=== PATIENT | male | born 1950 | race Caucasian/White ===

== ENCOUNTER 2023-07-23 14:36 | Inpatient (IN) | payer MEDICARE, SELFPAY ==
[2023-07-23] VITALS (69 sets, daily range): BP systolic 87–153; BP diastolic 64–89; PULSE 45–105; RESP 17–39; TEMP 34.1; O2SAT 82–100; BMI 17.3
--- NOTE | 2023-07-23 14:38 | CTR_ITS ---
PROCEDURE INFORMATION: Exam: CT Head Without Contrast Exam date and time: 07/23/2023 3:37 PM Age: 72 years old Clinical indication: Altered mental status/memory loss and coma or unconsciousness; Confusion or disorientation; Additional info: Encephalopathy, altered mental status TECHNIQUE: Imaging protocol: Computed tomography of the head without contrast. Radiation optimization: All CT scans at this facility use at least one of these dose optimization techniques: automated exposure control; mA and/or kV adjustment per patient size (includes targeted exams where dose is matched to clinical indication); or iterative reconstruction. COMPARISON: No relevant prior studies available. RADIATION DOSE METRICS: Total DLP (mGy-cm): 1077.5 FINDINGS: Brain: Normal. No hemorrhage. Unremarkable white matter. No mass effect. Cerebral ventricles: No ventriculomegaly. Paranasal sinuses: Visualized sinuses are unremarkable. No fluid levels. Mastoid air cells: Visualized mastoid air cells are well aerated. Bones: Unremarkable. No acute fracture. Soft tissues: Unremarkable. CT/CT head wo con* [id number] IMPRESSION: No acute intracranial abnormality.
--- NOTE | 2023-07-23 14:38 | XRR_ITS ---
PROCEDURE INFORMATION: Exam: XR Chest Exam date and time: 07/23/2023 2:53 PM Age: 72 years old Clinical indication: Pain; Angina pectoris; Patient HX: PT unresponsive; Additional info: Chest pain TECHNIQUE: Imaging protocol: Radiologic exam of the chest. Views: 1 view. COMPARISON: No relevant prior studies available. FINDINGS: Tubes, catheters and devices: Endotracheal tube terminates 7 cm above the raphael. Lungs: Emphysematous COPD. Pleural spaces: Unremarkable. No pleural effusion. No pneumothorax. Heart/Mediastinum: Unremarkable. No cardiomegaly. Bones/joints: Unremarkable. Soft tissues: Hazy density over the left apex is probably superimposed soft tissue, a minimal infiltrate might be present. XR/XR chest 1V portable [id number] IMPRESSION: Intubation.
--- NOTE | 2023-07-23 14:39 | ECG_ITS ---
[facility] Test Date: 2023-07-23 Pat Name: Johnathon Garcia Department: Room: Gender: Male Envelope Folder: : 1950 Requested By: Liss Michael Order Number: [id number] Brisa MD: Joe Guillermo M.D. Measurements Intervals [place] Rate: 66 P: 0 OR: 0 QRS: -87 QRSD: 146 T: 70 QT: 448 QTc: 473 Interpretive Statements Possible sinus rhythm with a first-degree AV block occasional premature ventricular contractions. LEFT AXIS DEVIATION [QRS AXIS < -30] RIGHT BUNDLE BRANCH BLOCK [120+ ms QRS DURATION, UPRIGHT V1, 40+ ms S IN I/aVL/V4/V5/V6] MARKED ST DEPRESSION, CONSIDER SUBENDOCARDIAL INJURY [0.2+ mV ST DEPRESSION] ACUTE MT No previous ECG available for comparison Electronically Signed On 07-23-2023 19:11:34 CDT by Joe Guillermo M.D. [id number]
[2023-07-23 14:50] LABS: Basophils % 0.2 %; Eosinophils % 0.1 %; Hematocrit 34.7 % (37-53); Lymphocytes % 34.9 %; Mean Corpuscular HGB Conc 34.3 g/dL (30-55); Mean Corpuscular Hemoglobin 39.8 pg (27-33); Mean Corpuscular Volume 116.1 fl (82-101); Mean Platelet Volume 10.7 fL (7.4-10.4); Monocytes # 0.1 10^3/uL (0.2-0.9); Monocytes % 1.3 %; Neutrophils # 5.09 10^3/uL (1.8-7.7); Neutrophils % 59.2 %; Nucleated Red Blood Cells % 0.2 %; Platelet Count 48 10^3/cmm (157-399); Red Blood Count 2.99 10^6/uL (3.85-5.65); Red Cell Distribution Width 13.2 % (12.1-15.1)
--- NOTE | 2023-07-23 14:53 | ED_ITS ---
HPI - General Adult 2 General: Chief complaint: Cardiac Arrest/CPR Stated complaint: unresponsive Time Seen by Provider: 07/23/23 14:37 Course 2 Vital Signs: Vital signs: Vital Signs Pulse Rate 72 07/23/23 14:41 Respiratory Rate 19 H 07/23/23 14:41 Blood Pressure 117/74 07/23/23 14:41 Pulse Oximetry 100 07/23/23 14:41 Oxygen Delivery Me thod Mechanical Ventil ation 07/23/23 14:41 MDM - General Adult Lab Data 07/23/23 14:42 07/23/23 14:42 Laboratory Results WBC 8.60 10^3/uL (3.29-11.43) 07/23/23 14:42 RBC 2.99 10^6/uL (3.85-5.65) L 07/23/23 14:42 Hgb 11.90 g/dL (11.27-16.99) 07/23/23 14:42 Hct 34.7 % (37-53) L 07/23/23 14:42 MCV 116.1 fl (82-101) H 07/23/23 14:42 MCH 39.8 pg (27-33) H 07/23/23 14:42 MCHC 34.3 g/dL (30-55) 07/23/23 14:42 RDW 13.2 % (12.1-15.1) 07/23/23 14:42 Plt Count 48 10^3/cmm (157-399) L 07/23/23 14:42 MPV 10.7 fL (7.4-10.4) H 07/23/23 14:42 Neut % (Auto) 59.2 % 07/23/23 14:42 Lymph % (Auto) 34.9 % 07/23/23 14:42 [place] % (Auto) 1.3 % 07/23/23 14:42 Eos % (Auto) 0.1 % 07/23/23 14:42 Baso % (Auto) 0.2 % 07/23/23 14:42 Neut # (Auto) 5.09 10^3/uL (1.8-7.7) 07/23/23 14:42 Lymph # (Auto) 3.0 10^3/uL (0.8-4.8) 07/23/23 14:42 [place] # (Auto) 0.1 10^3/uL (0.2-0.9) L 07/23/23 14:42 Eos # (Auto) 0.0 10^3/uL (0.0-0.8) 07/23/23 14:42 Baso # (Auto) 0.0 10^3/uL (0.0-0.1) 07/23/23 14:42 Nucleated RBC % (auto) 0.2 % 07/23/23 14:42 Nucleated RBCs # 0.0 /100WBC 07/23/23 14:42 Discharge Plan Discharge Condition: Stable Coding Level of Care Code ED Preschool Assistant for George Reynoso
--- NOTE | 2023-07-23 14:55 | ED_ITS ---
HPI - General Adult 2 General: Chief complaint: Cardiac Arrest/CPR Stated complaint: unresponsive Time Seen by Provider: 07/23/23 14:37 History of Present Illness: 72-year-old man who presents to the [facility] room after being found down at home. Apparently he gone to lie down for a nap and when his went to check on him he was unresponsive. EMS provide within 5 to 10 minutes of the call. CPR was performed at the residence for a total of an hour. ROSC achieved 3 times. They would wait 10 minutes afterwards per protocol. Finally they talked with nikunj cervantes at the hospital and were told to go ahead and transport as he cannot going from asystole to having a rhythm to ROSC. They started transport with CPR and regained pulse and he had a pulse on arrival here. At this point I have no other history. I do not know his past medical history. Review of Systems 2 General: Reports: ROS unobtainable due to medical condition Physical Exam 2 Narrative: EXAM NARRATIVE: General: unresponsive, intubated. Skin: Warm, dry Head: Normocephalic, atraumatic. Neck: Supple, trachea midline. Eye: pupils pinpoint, sluggish, equal Ears, nose, mouth and throat: ETT in place. Cardiovascular: Regular rate and rhythm, Normal peripheral perfusion. Respiratory: coarse, mechanically ventilated, breath sounds are equal, Symmetrical chest wall expansion. Gastrointestinal: Soft, Non distended, Normal bowel sounds. Musculoskeletal: no deformity. Neurological: unable to assess. Psychiatric: unable to assess Course 2 Vital Signs: Vital signs: Vital Signs Pulse Rate 72 07/23/23 16:20 Respiratory Rate 17 07/23/23 16:20 Blood Pressure 121/79 07/23/23 16:20 Pulse Oximetry 100 07/23/23 15:50 Oxygen Delivery Me thod Mechanical Ventil ation 07/23/23 14:41 Fraction of Inspir ed Oxygen 40 07/23/23 15:53 MDM - General Adult Medical Decision Making Medical decision making: Differential diagnosis including but not limited to and based on the above HPI, review of systems and physical exam: In this postcode patient would have concern for intracranial hemorrhage or stroke. Acute coronary syndrome. Sepsis. Also pulmonary embolism would be in my differential. Once lab work is back and there was no other determination of what might be causing this I have ordered a CTA. EKG serially. Troponin serially. Orders placed to evaluate differential diagnosis based on the above differential, HPI and physical exam Lab Review: Laboratory results were reviewed and interpreted by myself the emergency room physician. Patient has a white count of 8. Hemoglobin is 11.9. He has thrombocytopenia with platelets of 48. His blood glucose is slightly elevated at 276. His BUN and creatinine are slightly elevated at 13 and 1.3. Bicarb is low at 16. This was confirmed as a metabolic acidosis on ABG. Lactate is 12. I reviewed the patient's medical record. CT head: No acute intracranial process. no intracranial hemorrhage, no evidence of infarct. no evidence of acute fracture.This was reviewed and interpreted by myself the ER physician. Chest x-ray: ET tube in place. Otherwise no acute process. No infiltrate. No pneumothorax. No cardiomegaly. This was reviewed and interpreted by myself the ER physician. EKG: Time 1448. Rate 66. A-fib or sinus with sinus dysrhythmia. Diffuse ST depression, This was reviewed and interpreted by myself the ER physician at 1450. I discussed the findings of this EKG with the public transit specialist. Diffuse ST depression that is likely secondary to metabolic changes. Repeat EKG: Regular rhythm at this time. Uncertain whether this is sinus. New right bundle branch block. Diffuse ST depression has improved somewhat., No ST- T changes, no ectopy, right bundle branch block, This was reviewed and interpreted by myself the ER physician Reexamination: Patient is now critical but relatively stable on the vent and pressors. He has been biting at the vent tube and shows no focal motor deficits. CT of his head was negative for bleed. Oxygen saturations are good on the ventilator and supplemental oxygen has been decreased. Alternative history from : I discussed the patient with his . She says that he is normally very healthy and only takes an aspirin a day. She confirms that he had to lay down for a nap and when she found him in 15 or 20 minutes he was unresponsive and barely breathing. Consultation: I spoke with Dr. Burciaga with cardiology and he reviewed the EKG. EKG changes likely due to metabolic acidosis. Consultation: I spoke with Dr. Calderon who is admitting the patient to the ICU. Assessment and plan: Cardiac arrest Cardiogenic shock Possible septic shock Metabolic acidosis Lactic acidosis Elevated troponin Abnormal EKG Coagulopathy ?I am adding a CTA with PE protocol prior to admission to the ICU. -Patient on Levophed that was started upon presentation. Have decreased from 20 down to about 18. -Started cessation with Versed. Now adding fentanyl drip as well. -PICC line was ordered and being placed in the emergency room. ?Initial troponin is elevated. Unclear etiology of the patient's cardiac arrest. Whether this be an acute coronary syndrome versus PE. -Treating for presumed sepsis. -No clear source of sepsis but given patient's persistent hypotension he has received 2 L of fluid and broad-spectrum antibiotics. -2 L normal saline bolus. Fluid volumes based on ideal body weight. -Broad-spectrum antibiotics were administered. -Sepsis quality measures. -Lactic acid with a reflex was ordered. -Blood cultures were ordered. -Patient was intubated on presentation. Oxygen has been turned down. Sodium bicarbonate was given for extreme metabolic acidosis ?Patient's INR is elevated and platelets are low. Will defer any anticoagulants to the public transit specialist. -I discussed the patient with the hospitalist on-call who is admitting the patient. - Discussed findings and plan with family. Answered any questions. - All laboratory values were reviewed and interpreted personally by myself, the ER physician - All imaging was reviewed and interpreted personally by myself, the ER physician. - Evaluation and treatment of this problem were appropriate in the emergency setting Critical care: -I spent a total of >75 minutes of critical care time managing the patient, independent of any other practitioner. -The time involved in the performance of separately reportable procedures was not counted towards critical care time. Lab Data 07/23/23 14:42 07/23/23 14:42 Radiology Impressions Chest X-Ray 07/23/23 14:38 IMPRESSION: Intubation. Head CT 07/23/23 14:38 IMPRESSION: No acute intracranial abnormality. Laboratory Results WBC 8.60 10^3/uL (3.29-11.43) 07/23/23 14:42 RBC 2.99 10^6/uL (3.85-5.65) L 07/23/23 14:42 Hgb 11.90 g/dL (11.27-16.99) 07/23/23 14:42 Hct 34.7 % (37-53) L 07/23/23 14:42 MCV 116.1 fl (82-101) H 07/23/23 14:42 MCH 39.8 pg (27-33) H 07/23/23 14:42 MCHC 34.3 g/dL (30-55) 07/23/23 14:42 RDW 13.2 % (12.1-15.1) 07/23/23 14:42 Plt Count 48 10^3/cmm (157-399) L 07/23/23 14:42 MPV 10.7 fL (7.4-10.4) H 07/23/23 14:42 Neut % (Auto) 59.2 % 07/23/23 14:42 Lymph % (Auto) 34.9 % 07/23/23 14:42 [place] % (Auto) 1.3 % 07/23/23 14:42 Eos % (Auto) 0.1 % 07/23/23 14:42 Baso % (Auto) 0.2 % 07/23/23 14:42 Neut # (Auto) 5.09 10^3/uL (1.8-7.7) 07/23/23 14:42 Lymph # (Auto) 3.0 10^3/uL (0.8-4.8) 07/23/23 14:42 [place] # (Auto) 0.1 10^3/uL (0.2-0.9) L 07/23/23 14:42 Eos # (Auto) 0.0 10^3/uL (0.0-0.8) 07/23/23 14:42 Baso # (Auto) 0.0 10^3/uL (0.0-0.1) 07/23/23 14:42 Nucleated RBC % (auto) 0.2 % 07/23/23 14: Nucleated RBCs # 0.0 /100WBC 07/23/23 14:42 PT 38.10 SECONDS (12.1-14.9) H 07/23/23 14:42 INR 3.70 (0.8-1.2) H 07/23/23 14:42 APTT 153.8 SECONDS (23.9-36.7) H* 07/23/23 14:42 Specimen Type Arterial 07/23/23 15:13 Sample Site Radial, right 07/23/23 15:13 ABG pH 7.10 (7.35-7.45) L* 07/23/23 15:13 ABG pCO2 36.8 mmHg (35-45) 07/23/23 15:13 ABG pO2 483.0 mmHg (80.0-100.0) H 07/23/23 15:13 ABG PO2/FiO2 Ratio 0 07/23/23 15:13 ABG HCO3 11.4 mmol/L (22-26) L 07/23/23 15:13 ABG O2 Saturation > 100.0 07/23/23 15:13 ABG Base Excess -17.3 mmol/L (-2.0-2.0) L 07/23/23 15:13 Byron Test Pos 07/23/23 15:13 A-a O2 Gradient 22.4 mmHg (5-10) H 07/23/23 15:13 Hematocrit 32.7 % (42-52) L 07/23/23 15:13 Hgb O2 Saturation 99.0 % (95-100) 07/23/23 15:13 Carboxyhemoglobin 0.6 %THgb (0.4-20.1) 07/23/23 15:13 Methemoglobin 0.5 % (0.4-1.5) 07/23/23 15:13 Total Hemoglobin 10.7 g/dL (14-18) L 07/23/23 15:13 Sodium 142.0 mmol/L (131-143) 07/23/23 15:13 Potassium 4.4 mmol/L (3.5-5.0) 07/23/23 15:13 Glucose 220.0 mg/dL (70-115) H 07/23/23 15:13 Ionized Calcium 1.0 mmol/L (1.1-1.4) L 07/23/23 15:13 O2 Delivery Device Vent 07/23/23 15:13 FiO2 100.0 % 07/23/23 15:13 Tidal Volume 0.45 07/23/23 15:13 PEEP 5.0 cmH20 07/23/23 15:13 Die Storage Clerk ID glc 07/23/23 15:13 Sodium 144 mmol/L (136-145) 07/23/23 14:42 Potassium 4.3 mmol/L (3.5-5.1) 07/23/23 14:42 Chloride 107 mmol/L (98-107) 07/23/23 14:42 Carbon Dioxide 16 mmol/L (22-29) L 07/23/23 14:42 Anion Gap 25.3 (5-19) H 07/23/23 14:42 BUN 13 mg/dL (8-23) 07/23/23 14:42 Creatinine 1.3 mg/dL (0.7-1.2) H 07/23/23 14:42 GFR Calculation Not Reportable 07/23/23 14:42 Glucose 276 mg/dL (65-115) H 07/23/23 14:42 Calculated Osmolality 308 mOsm/kg (285-295) H 07/23/23 14:42 Lactic Acid 11.2 mmol/L (0.5-2.2) H* 07/23/23 14:42 Calcium 7.9 mg/dL (8.5-10.5) L 07/23/23 14:42 Total Bilirubin 0.5 mg/dL (0.15-1.2) 07/23/23 14:42 AST 410 U/L (0-40) H 07/23/23 14:42 ALT 217 U/L (0-41) H 07/23/23 14:42 Alkaline Phosphatase 108 U/L (40-130) 07/23/23 14:42 Troponin T Baseline 281 ng/L (0-15) H* 07/23/23 14:42 NT-Pro-B Natriuret Pep 59745 pg/mL (0-125) H 07/23/23 14:42 Total Protein 4.5 g/dL (6.6-8.7) L 07/23/23 14:42 Albumin 3.0 g/dL (3.5-5.2) L 07/23/23 14:42 Globulin 1.5 g/dL (1.3-4.6) 07/23/23 14:42 Serum Ketones Negative (Negative) 07/23/23 14:42 All radiology interpretation(s) finalized by discharge Discharge Plan Discharge Condition: Stable Coding Level of Care Code ED Wool Shearer for George Reynoso
[2023-07-23] MEDS: midazolam hcl 100 MG/100 ML BAG IV (14:57)
[2023-07-23] MEDS: fentaNYL 1,000 MCG/100 ML BAG 2.5 MCG IV (14:58)
[2023-07-23] MEDS: sodium chloride 0.9% 1,000 ML 999 ML IV ×4 (15:00→22:39)
[2023-07-23] MEDS: norepinephrine 4 MG/250 ML BAG 75 MG IV (15:02)
[2023-07-23 15:04] LABS: Ketone (Acetest) Serum Negative (Negative)
[2023-07-23] MEDS: sodium bicarbonate 8.4% 1 mEq/mL 50mL Syr 50 MEQ IVP (15:18)
[2023-07-23 15:19] LABS: Troponin(5th) Baseline 281 ng/L (0-15)
[2023-07-23 15:20] LABS: Lactic Sepsis W/Reflex 11.2 mmol/L (0.5-2.2)
[2023-07-23 15:25] LABS: ABG PCO2 36.8 mmHg (35-45); Alveolar-Arterial Oxygen Gradi 22.4 mmHg (5-10); Arterial Blood Gas Hematocrit 32.7 % (42-52); Base Excess ABG -17.3 mmol/L (-2.0-2.0); Blood Gas Allen Test Pos; Blood Gas Operator Identificat glc; Blood Gas Sample Site Radial, right; Blood Gas Sample Type Arterial; Carboxyhemoglobin 0.6 %THgb (0.4-20.1); HCO3 ABG 11.4 mmol/L (22-26); Methemoglobin 0.5 % (0.4-1.5); Oxygen Device VENT; Oxygen Saturation ABG > 100.0; PO2 FiO2 Ratio Arterial Blood 0; Potassium Level - ABG 4.4 mmol/L (3.5-5.0); Total Hemoglobin 10.7 g/dL (14-18)
[2023-07-23 15:26] LABS: Blood Gas Tidal Volume 0.45
[2023-07-23 15:28] LABS: Alanine Aminotransferase 217 U/L (0-41); Alkaline Phosphatase 108 U/L (40-130); Blood Urea Nitrogen 13 mg/dL (8-23); Calcium 7.9 mg/dL (8.5-10.5); Carbon Dioxide 16 mmol/L (22-29); Chloride 107 mmol/L (98-107); Globulin 1.5 g/dL (1.3-4.6); Glucose 276 mg/dL (65-115); NT Pro B Type Natriuretic Pept 10706 pg/mL (0-125); Osmolality Calculated 308 mOsm/kg (285-295); Sodium 144 mmol/L (136-145); Total Bilirubin 0.5 mg/dL (0.15-1.2); Total Protein 4.5 g/dL (6.6-8.7)
[2023-07-23 15:37] LABS: Anion Gap 25.3 (5-19); Aspartate Amino Transferase 410 U/L (0-40); Potassium 4.3 mmol/L (3.5-5.1)
[2023-07-23 15:48] LABS: Partial Thromboplastin Time 153.8 SECONDS (23.9-36.7)
--- NOTE | 2023-07-23 16:21 | CTR_ITS ---
PROCEDURE INFORMATION: Exam: CTA Chest With Contrast Exam date and time: 07/23/2023 5:24 PM Age: 72 years old Clinical indication: Bloating; Dyspnea and hyperventilation; Additional info: Hypoxemia, tachycardia TECHNIQUE: Imaging protocol: Computed tomographic angiography of the chest with contrast. Exam focused on the arteries. 3D rendering (Not supervised by radiologist): MIP and/or 3D reconstructed images were created by the technologist. Radiation optimization: All CT scans at this facility use at least one of these dose optimization techniques: automated exposure control; mA and/or kV adjustment per patient size (includes targeted exams where dose is matched to clinical indication); or iterative reconstruction. Contrast material: OMNI 350; Contrast volume: 100 ml; Contrast route: INTRAVENOUS (IV); COMPARISON: CR XR chest 1V portable [id number] 07/23/2023 2:53 PM RADIATION DOSE METRICS: Total DLP (mGy-cm): 949.45 FINDINGS: Tubes, catheters and devices: Intubation with tip in the mid thoracic trachea. Pulmonary arteries: Small filling defect in a subsegmental pulmonary artery branch in the medial segment of the right middle lobe. The other pulmonary arteries are clear. Aorta: Unremarkable. No aortic aneurysm. No aortic dissection. Lungs: Right upper lobe calcified granuloma. 3 mm right lower lobe nodule (series 7, image 404). Dependent atelectasis in the lower lobes. Patchy ground-glass and airspace opacities with interlobular septal thickening in the superior left upper lobe. Pleural spaces: Unremarkable. No pneumothorax. No pleural effusion. Heart: Anterior and right pericardial fluid. Heart size normal sign mitral calcifications. The RV/LV ratio is 0.6. Lymph nodes: Unremarkable. No enlarged lymph nodes. Bones/joints: Scoliosis and degenerative changes of the spine. No fracture. Soft tissues: Unremarkable. risk factors), consider optional CT Chest at 12 months. (Reference: Katrin) References: Hahoirene H, et al. Guidelines for Management of Incidental Pulmonary Nodules Detected on CT Images: From the Fleischner Society 2017. Radiology. 2017;284(1):228-243. PROCEDURE INFORMATION: Exam: CT Abdomen And Pelvis With Contrast Exam date and time: 07/23/2023 5:24 PM Age: 72 years old Clinical indication: Bloating; Dyspnea and hyperventilation; Additional info: Hypoxemia, tachycardia TECHNIQUE: Imaging protocol: Computed tomography of the abdomen and pelvis with contrast. Radiation optimization: All CT scans at this facility use at least one of these dose optimization techniques: automated exposure control; mA and/or kV adjustment per patient size (includes targeted exams where dose is matched to clinical indication); or iterative reconstruction. Contrast material: OMNI 350; Contrast volume: 100 ml; Contrast route: INTRAVENOUS (IV); COMPARISON: CR XR chest 1V portable [id number] 07/23/2023 2:53 PM RADIATION DOSE METRICS: Total DLP (mGy-cm): 949.45 FINDINGS: Liver: Diffuse fatty infiltration with focal sparing adjacent to the gallbladder. No mass. Gallbladder and bile ducts: Mild calcifications in the gallbladder wall. No visible stones. The bile ducts are normal. Pancreas: Normal. No ductal dilation. Spleen: Calcified granulomas in the spleen. Adrenal glands: Normal. No mass. Kidneys and ureters: Renal cortical thinning. Bilateral renal cysts, Hounsfield units 20 or less. No follow-up imaging recommended. No calculus or hydronephrosis. Stomach and bowel: Fluid and stool scattered throughout the colon to the rectum. No wall thickening. Fluid and gas distended stomach with fluid level. The small bowel is normal. No wall thickening or obstruction. Appendix: The appendix is not visualized. No secondary signs of appendicitis. Intraperitoneal space: Mild ascites and pericholecystic fluid. No pneumoperitoneum. Vasculature: Scattered calcified arterial plaque. 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 Lymph nodes: Unremarkable. No enlarged lymph nodes. Urinary bladder: Clarke catheter a decompressed urinary bladder. Reproductive: Unremarkable as visualized. Bones/joints: Lumbar scoliosis and degenerative changes. No acute fracture. Soft tissues: Unremarkable. CT/CT angio chest w abd pel w con IMPRESSION: 1. Findings suspicious for a small pulmonary embolus in the right middle lobe. 2. Left upper lobe pneumonia. 3. Pericardial fluid. 4. 3 mm right pulmonary nodule.For patients at low risk (minimal or absent history of smoking and of other known risk factors), no routine follow-up is indicated. For patients at high risk (history of smoking or of other known IMPRESSION: 1. Mild ascites and pericholecystic fluid. 2. Fluid and gas distended stomach. 3. Stool and fluid volume in the colon and rectum could indicate constipation and possible diarrhea. 4. 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 COMMENTS: Consistent with the [employer]'s Incidental Findings Committee white paper (J Am Ze Radiol 2018): Any incidental renal lesion less than 1 cm or classified as too small to characterize, or any incidental cystic renal lesion characterized as simple-appearing, is likely benign. No follow-up imaging is recommended for these lesions per consensus recommendations based on imaging criteria.
[2023-07-23 16:34] LABS: Reflex Lactate Order REFLEX LACTIC ORDERD
--- NOTE | 2023-07-23 16:39 | ECG_ITS ---
[facility] Test Date: 2023-07-23 Pat Name: Johnathon Garcia Department: Room: Gender: Male Labeling Associate: : 1950 Requested By: Liss Michael Order Number: [id number] Ledezma MD: Joe Guillermo M.D. Measurements Intervals [place] Rate: 74 P: 0 [place]: 0 QRS: -87 QRSD: 149 T: 78 QT: 463 QTc: 515 Interpretive Statements A-V dissociation with possible junctional tachycardia RIGHT BUNDLE BRANCH BLOCK [120+ ms QRS DURATION, UPRIGHT V1, 40+ ms S IN I/aVL/V4/V5/V6] INFERIOR MYOCARDIAL INFARCTION , OF INDETERMINATE AGE [40+ ms Q WAVE AND/OR ST/T ABNORMALITY IN II/aVF] Compared to ECG 07/23/2023 14:48:23 Myocardial infarct finding now present Atrial fibrillation no longer present Ventricular premature complex(es) no longer present Aberrant conduction of supraventricular beat(s) no longer present Left-axis deviation no longer present ST (T wave) deviation no longer present Electronically Signed On 07-23-2023 19:22:03 CDT by Joe Guillermo M.D. [email or web address]
[2023-07-23 17:24] LABS: Troponin 5 2HR 1377 ng/L (0-15); Troponin 5 2HR Delta 1096 ABS# (0-10)
[2023-07-23] MEDS: iohexol 350 mg/mL 500 mL Btl (per mL) IV (17:27)
--- NOTE | 2023-07-23 17:50 | XRR_ITS ---
PROCEDURE INFORMATION: Exam: XR Chest Exam date and time: 07/23/2023 6:30 PM Age: 72 years old Clinical indication: Device placement; Picc; Additional info: Post picc insertion, louis placing in icu 11. Should be ready at 1830 TECHNIQUE: Imaging protocol: Radiologic exam of the chest. Views: 1 view. COMPARISON: CT angio chest w abd pel w con 07/23/2023 5:24 PM FINDINGS: Tubes, catheters and devices: Intubation with tip 10.0 cm above the raphael. Right PICC line with tip in the mid SVC. Lungs: Calcified granuloma in the right upper lung. Mild airspace opacity in the superior left upper lobe. Pleural spaces: Unremarkable. No pleural effusion. No pneumothorax. Heart/Mediastinum: Unremarkable. No cardiomegaly. Bones/joints: Unremarkable. XR/XR chest 1V portable [id number] IMPRESSION: 1. Left upper lobe pneumonia.
[2023-07-23 17:58] LABS: Lactic Acid level (Lactate) 10.2 mmol/L (0.5-2.2)
--- NOTE | 2023-07-23 17:58 | P.HP_ITS ---
Providers/Chief Complaint 2 Admitting Physician: Zay Moore MD Chief Complaint: unresponsive History of Present Illness Johnathon Garcia is a 72 year old male with past medical history of diabetes, he has not seen a physician in many years, who presents to [facility] due to cardiac arrest. Currently patient is intubated, sedated, on 18 of Levophed, 40% FiO2, does not follow commands, patient's is at bedside. According to patient's for the last few months patient's condition has been deteriorating, has been more weak fatigue he has been losing weight, more bedbound, less mobile, she tells me that he is an alcoholic, his last drink of alcohol was last night before he went to bed, he does frequently stumble, she tells me that he has been having poor appetite, weight loss, fatigue, malaise, complaining of chest pain intermittently complaining of shortness of breath, but has not seen a physician for these complaints. Apparently this morning, him and his went out for a picnic, they did not go so far, and they came back around noon. Patient's stepped out for about 15 to 20 minutes, Johnathon went to take a nap, when she came back she found Johnathon, unresponsive, agonal breathing, she could not feel a pulse so she called her son who told her to call an ambulance, when EMS arrived about 5 to 10 minutes after the call, CPR was performed at the residence for a total of about an hour, ROSC was achieved 3 times, rhythm was asystole, rhythm after ROSC was unclear during my examination, pupils are slowly reactive to light, he is biting on the ET tube, does not follow commands, mottled up to the level of the abdomen, on Levophed at 18, 40% FiO2, equal breath sounds bilaterally, rhythm on the monitor looks sinus rhythm, his lactic acid is 10.2, initial troponin was 281, now troponin 1377 with a delta of 1096,st depression in anterior leads, is at bedside I had a detailed discussion with patient about his goals of care, patient's does not want patient to be resuscitated if he were to go into cardiac arrest, if his condition starts to further deteriorate, and the likelihood of him having a meaningful recovery is unlikely she will at all interventions to be stopped, above all she does not want him to suffer, if he starts to suffer if his condition starts to deteriorate, she wants us to emphasize his comfort, and she is agreeable to proceed with comfort care, rest to ease his pain and ease his suffering, for now she wants medical interventions to continue, but again if his condition deteriorates or if the likelihood of him having a meaningful recovery is unlikely she wants medical interventions to be stopped and for us to proceed with comfort care I did discussion with patient's that his overall prognosis is poor, given his prolonged CPR, his prolonged downtime, and based upon his blood work, and his his clinical findings, I am worried about poor neurologic recovery given his downtime, his prolonged CPR, evidence of endorgan failure, currently his status is critical, prognosis is poor Review of Systems 2 General: Reports: ROS unobtainable due to mental status PFSH Acute 2 PFSH: Surgical History (Updated 07/23/23 @ 18:22 by Zay Moore MD) No pertinent past surgical history Family History (Updated 07/23/23 @ 18:21 by Zay Moore MD) Father Lung cancer Mother Liver disease Social History (Updated 07/23/23 @ 18:22 by Zay Moore MD) Smoking and tobacco/nicotine status: never used tobacco/nicotine Alcohol intake: current Alcohol intake frequency: 3 or more drinks per day Substance/Drug Use: never Vitals/I&O/Wt Last Vital Signs Pulse 49 L 07/23/23 17:55 Resp 24 H 07/23/23 17:15 BP 153/67 07/23/23 17:55 Pulse Ox 100 07/23/23 17:55 O2 Del Method Mechanical Ventilation 07/23/23 14:41 FiO2 40 07/23/23 15:53 07/23/23 07/23/23 07/23/23 06:59 14:59 22:59 Intake Total 0 / 0 1067.383 / 1067.383 Balance 0 / 0 1067.383 / 1067.383 Physical Exam 2 Narrative: Intubated, sedated Const: COMMON NORMALS: no acute distress GENERAL APPEARANCE: ill appearing and frail appearing NUTRITIONAL APPEARANCE: cachectic HENMT: COMMON NORMALS: normocephalic HEAD & SCALP: normocephalic Eye: COMMON NORMALS: Equal, round and reactive pupils present Neck/C-Spine: COMMON NORMALS: no JVD Resp: COMMON NORMALS: normal respiratory effort, No retractions and No use of accessory muscles AUSCULTATION: crackles and wheezes Cardio: COMMON NORMALS: no JVD, regular rate, regular rhythm, S1 normal heart sound present and S2 normal heart sound present RATE: regular rate RHYTHM: regular rhythm HEART SOUNDS: S1 normal heart sound present and S2 normal heart sound present GI: COMMON NORMALS: Normal to inspection, nondistended, normoactive bowel sounds present, Soft to palpation and non-tender OTHER: Mottling up to the umbilicus Extremity: COMMON NORMALS: no calf tenderness and no pedal edema Urinary Catheter Management: Clarke: Cath Placed During This Visit: yes Urinary Catheter Date of Insertion: 07/23/23 Urinary Catheter Time of Insertion: 16:27 Sepsis: Is patient septic: Yes Focused sepsis exam performed: Yes F ocused sepsis exam: DP PT pulses barely palpable, cap refill greater than 2 seconds, mottling bilateral lower extremities, up to the level of the abdomen Date exam was performed: 07/23/23 Time exam was performed: 18:23 Data 07/23/23 14:42 07/23/23 14:42 Micro: Microbiology 07/23/23 14:47 Blood Culture - Preliminary Blood SPECIMEN COLLECTED 07/23/23 14:47 Blood Culture - Preliminary Blood SPECIMEN COLLECTED A&P Assessment and plan (1) Cardiogenic shock: (2) Elevated troponin: (3) Cardiac arrest: (4) Metabolic acidosis: (5) Lactic acidosis: (6) Acute hypoxic respiratory failure: (7) Shock liver: (8) NSTEMI (non-ST elevated myocardial infarction): (9) Multiorgan failure: (10) Thrombocytopenia: (11) Elevated INR: (12) Anoxic brain injury: Plan Cardiac arrest ? Concerning for possible cardiac etiology, given elevated troponins, complaints of chest pain ? CPR for roughly an hour, was down for about 25 to 30 minutes before CPR ? Rhythm was asystole ? With ROSC achieved, 3 times ? Current EKG shows ST depressions in anterior leads, no acute ST-T wave changes ? Cardiology consulted, recommended medical management for now,will Consider cardiac intervention based on clinical progress ? Cannot anticoagulate given elevated PTT, elevated INR, thrombocytopenia ? Continue aspirin ? Cardiac echocardiogram ? Monitor neurologic status closely, patient is at high risk for anoxic brain injury given prolonged downtime, ? Overall goals of care, currently allow natural , if patient's condition clinically worsens, if the likelihood of meaningful recovery is unlikely, patient's family wants patient to be made comfortable for now continue medical interventions, patient's family does not want CPR ? Overall prognosis poor, status critical Concerns for anoxic brain injury ?given prolonged downtime, prolonged CPR ? Monitor neurologic status closely -Neurochecks ? Family does state that if patient has concerns for poor neurologic recovery, they want all medical interventions to be stopped, will assess neurologic status closely, NSTEMI ? Positive delta troponin ? Serial EKGs. Troponins, telemetry monitoring -Cardiac echo ? Continue aspirin ? Cannot anticoagulate given elevated INR of 3, elevated PTT, 6 thrombocytopenia Acute hypoxic respiratory failure ? Secondary to pulmonary edema, cardiac arrest, -Is currently intubated, sedated ? Continue Versed, continue fentanyl ? Monitor respiratory status closely Shock, likely multifactorial from cardiogenic shock, could be component of septic shock ? Continue broad-spectrum antibiotic therapy, vancomycin and Zosyn, Continue Levophed Add on vasopressin ? Add albumin, ? Stress dose steroids, hydrocortisone Evidence of liver dysfunction ? Evidence of shock liver, elevated INR, low albumin, elevated LFTs could be underlying liver disease from alcoholism, could be component of shock liver for patient's cardiac arrest Acute renal failure Metabolic acidosis, lactic acidosis ? Start bicarb drip Thrombocytopenia Stat CT scan abdomen pelvis ordered, Prognosis poor, status critical, Protonix for GI prophylaxis, anticoagulation relatively contraindicated given patient's elevated INR, PTT, thrombocytopenia Spoke to patient's family, spoke to ER provider, spoke to cardiology Attestations 2 Medical Necessity Statement*: Patient requires hospitalization, inpatient, greater than 2 midnights, for cardiac arrest, NSTEMI, respiratory failure, shock, liver dysfunction, renal failure, metabolic acidosis, lactic acidosis Coding Level of Care Code Critical Care >/= 30 minutes Critical care time (in minutes): 55 The high probability of a clinically significant, sudden or life threatening deterioration, as referenced in this documentation, required my full and direct attention, intervention and personal management. The critical care time shown is in addition to time spent performing any reported separately billable procedures and includes the following: [x] Data and vital sign review and interpretation [x ] Patient assessment, examination and intervention [x] Medication orders and management [x] Patient/Family updates as able [x] Care Coordination and Documentation. Diagnoses Cardiogenic shock R57.0 Elevated troponin R79.89 Cardiac arrest I46.9 Metabolic acidosis E87.20 Lactic acidosis E87.20 Acute hypoxic respiratory failure J96.01 Shock liver K72.00 NSTEMI (non-ST elevated myocardial infarction) I21.4 Multiorgan failure Thrombocytopenia D69.6 Elevated INR R79.1 Anoxic brain injury G93.1
--- NOTE | 2023-07-23 18:07 | P.CONIM_ITS ---
Providers/Reason For Consult 2 Consulting Physician/Specialty*: Wang Burciaga MD. Cardiology Reason for Consult*: Cardiac arrest Requesting Physician: Dr Rendon Attending Physician: Zay Moore MD History of Present Illness History of Present Illness Johnathon Garcia is a 72 year old male who has history of heavy alcohol use brought to hospital by EMS as was found unresponsive and had about 1 hour of resuscitation attempts. History is limited but no reported chest pain. Currently intubated. Patient's family in discussion for comfort care. Troponins went up significantly with delta of over a thousand. EKG not showing ST elevation. Review of Systems 2 General: Reports: ROS unobtainable due to mental status Medications/Allergies Current Medications Generic Name Dose Route Start Last Admin Trade Name Freq PRN Reason Stop Dose Admin Fentanyl 1,000 mcg in 100 mls @ 0 mls/hr 07/23/23 15:00 07/23/23 16:08 Sublimaze IV 25 mcg/hr .Q0M QUINCY 2.5 mls/hr Titration Protocol Per Protocol Midazolam HCl 100 mg in 100 mls @ 0 mls/hr 07/23/23 15:00 07/23/23 15:53 Versed IV 4 mg/hr .Q0M QUINCY 4 mls/hr Titration Protocol Per Protocol Norepinephrine Bitartrate 4 mg in 250 mls @ 0 mls/hr 07/23/23 15:00 07/23/23 15:54 Levophed IV 18 mcg/min .Q0M QUINCY 67.5 mls/hr Titration Protocol Per Protocol PFSH Acute 2 PFSH: Surgical History (Updated 07/23/23 @ 18:22 by Zay Moore MD) No pertinent past surgical history Family History (Updated 07/23/23 @ 18:21 by Zay Moore MD) Father Lung cancer Mother Liver disease Social History (Updated 07/23/23 @ 18:22 by Zay Moore MD) Smoking and tobacco/nicotine status: never used tobacco/nicotine Alcohol intake: current Alcohol intake frequency: 3 or more drinks per day Substance/Drug Use: never Vitals/I&O/Wt Last Vital Signs Pulse 49 L 07/23/23 17:55 Resp 24 H 07/23/23 17:15 BP 153/67 07/23/23 17:55 Pulse Ox 100 07/23/23 17:55 O2 Del Method Mechanical Ventilation 07/23/23 14:41 FiO2 40 07/23/23 15:53 07/23/23 07/23/23 07/23/23 06:59 14:59 22:59 Intake Total 0 / 0 1067.383 / 1067.383 Balance 0 / 0 1067.383 / 1067.383 Physical Exam 2 Narrative: Intubated, sedated Const: COMMON NORMALS: no acute distress GENERAL APPEARANCE: ill appearing and frail appearing NUTRITIONAL APPEARANCE: cachectic HENMT: COMMON NORMALS: normocephalic HEAD & SCALP: normocephalic Neck/C-Spine: COMMON NORMALS: no JVD Resp: COMMON NORMALS: normal respiratory effort, No retractions and No use of accessory muscles AUSCULTATION: crackles and wheezes Cardio: COMMON NORMALS: no JVD, regular rate, regular rhythm, S1 normal heart sound present and S2 normal heart sound present RATE: regular rate RHYTHM: regular rhythm HEART SOUNDS: S1 normal heart sound present and S2 normal heart sound present GI: COMMON NORMALS: Normal to inspection, nondistended, normoactive bowel sounds present, Soft to palpation and non-tender PALPATION: Yes Soft to palpation OTHER: Mottling up to the umbilicus Extremity: COMMON NORMALS: no calf tenderness and no pedal edema Urinary Catheter Management: Clarke: Cath Placed During This Visit: yes Urinary Catheter Date of Insertion: 07/23/23 Urinary Catheter Time of Insertion: 16:27 Sepsis: Is patient septic: Yes Focused sepsis exam performed: Yes Date exam was performed: 07/23/23 Time exam was performed: 18:23 Data 07/23/23 23:39 07/23/23 21:00 Micro: Microbiology 07/23/23 14:47 Blood Culture - Preliminary Blood SPECIMEN COLLECTED 07/23/23 14:47 Blood Culture - Preliminary Blood SPECIMEN COLLECTED A&P Assessment and plan (1) Cardiac arrest: (2) Cardiogenic shock: (3) Elevated troponin: (4) NSTEMI (non-ST elevated myocardial infarction): (5) Elevated INR: (6) Thrombocytopenia: (7) Shock liver: (8) Multiorgan failure: Plan Patient has multiorgan failure post cardiac arrest and prolonged CPR. Has guarded prognosis and family planning on comfort care. INR is elevated. If he recovers, can consider ischemic workup in future. No ST elevation [place] on EKG. Thank you for involving us with care of this patient. Please call with questions. Consult Attestations 2 Medical Necessity Statement: Care expected to cross 2 midnights. Coding Level of Care Code Acute Code for g Fwd Diagnoses Cardiac arrest I46.9 Cardiogenic shock R57.0 Elevated troponin R79.89 NSTEMI (non-ST elevated myocardial infarction) I21.4 Elevated INR R79.1 Thrombocytopenia D69.6 Shock liver K72.00 Multiorgan failure
[2023-07-23 18:28] LABS: Chol HDL Ratio 1.79 mg/dL (1.0-5.00); Cholesterol 93 mg/dL (0-200); HDL Cholesterol 52 mg/dL (60-100); LDL Cholesterol Calculated 20 mg/dL (50-129); LDL HDL Ratio 0.38 RATIO (0.00-3.22); Triglycerides 103 mg/dL (0-150)
[2023-07-23 18:35] LABS: Procalcitonin 0.03 ng/mL (0-0.5)
[2023-07-23 19:03] LABS: Reflex FDPQ test REFLEX FDP QUEST TES
--- NOTE | 2023-07-23 19:18 | PICC.NOTE ---
Triple lumen PICC placed to right brachial vein. Referred to vascular access nurse for PICC placement due to use of vasopressors. Risks and benefits discussed and informed consent obtained from patient . Right arm assessed with right brachial vein measuring 3.7 mm, straight, and apparent best choice for placement. Using sterile technique and MST, right brachial vein accessed x 1 stick. Mid-arm circumference measured 10 cm from right AC 22 cm. Trimmed cath 40 cm with 1 cm external length noted. CXR shows tip in SVC, in good position for use per radiologist. Line secured with stat-lock. Insertion site covered with Biopatch, gauze, and TSM. Report given to bedside nurse, PARESH Astorga.
[2023-07-23] MEDS: sodium bicarbonate 50 MEQ in sodium chloride 0.45% 1,000 ML 100 MEQ IV (19:19)
[2023-07-23 19:24] LABS: Estmated Average Glucose 80; Hemoglobin A1C 4.4 % (4.0-6.0)
[2023-07-23 19:38] LABS: D Dimer >= 20.00 ug/mLFEU (0-0.59)
[2023-07-23 19:40] LABS: Fibrinogen < 60 mg/dL (174-498)
[2023-07-23 19:41] LABS: INR 8.31 (0.8-1.2); Partial Thromboplastin Time 189.1 SECONDS (23.9-36.7)
[2023-07-23 19:41] LABS: Hematocrit 34.3 % (37-53); Platelet Count 91 10^3/cmm (157-399)
[2023-07-23 19:47] LABS: Glucose Point of Care 178 mg/dL (70-110)
[2023-07-23 20:03] LABS: Lactate (Lactic Acid level) 11.9 mmol/L (0.5-2.2)
[2023-07-23 20:04] LABS: Troponin 5 6HR 5534 ng/L (0-15); Troponin 5 6HR Delta 5253 ng/L (0-12)
[2023-07-23] MEDS: hydrocortisone 100 mg/2 mL SDV IVP (20:10)
[2023-07-23] MEDS: albumin 25 G/100 ML BAG 60 G IV (20:10)
[2023-07-23] MEDS: pantoprazole 40 mg SDV IVP (20:15)
[2023-07-23] MEDS: insulin lispro 100 unit/1 mL SUBCUT (20:15)
[2023-07-23 20:22] LABS: ABG PCO2 26.2 mmHg (35-45); Alveolar-Arterial Oxygen Gradi 10.6 mmHg (5-10); Arterial Blood Gas Hematocrit 37.4 % (42-52); Base Excess ABG -18.2 mmol/L (-2.0-2.0); Blood Gas Operator Identificat JB; Blood Gas Sample Site Femoral, right; Blood Gas Sample Type Arterial; Blood Gas Tidal Volume 0.45; Carboxyhemoglobin 1.1 %THgb (0.4-20.1); HCO3 ABG 9.1 mmol/L (22-26); HGB O2 Sat 98.6 % (95-100); Methemoglobin 0.1 % (0.4-1.5); Oxygen Device VENT; Oxygen Saturation ABG 99.8; PO2 FiO2 Ratio Arterial Blood 0; Potassium Level - ABG 4.6 mmol/L (3.5-5.0); Total Hemoglobin 12.2 g/dL (14-18)
[2023-07-23 20:29] LABS: ABG PH Result 7.15 (7.35-7.45)
[2023-07-23] MEDS: meropenem 500 MG in sodium chloride 0.9% (plus) 50 ML 100 MG IV (20:29)
[2023-07-23] MEDS: vancomycin 750 MG in sodium chloride 0.9% 250 ML 250 MG IV (20:33)
[2023-07-23] MEDS: piperacillin-tazobactam 3.375 GM in sodium chloride 0.9% (plus) 50 ML IV (20:43)
[2023-07-23 21:17] LABS: Basophils % 0.1 %; Eosinophils % 0.2 %; Hematocrit 28.3 % (37-53); Lymphocytes % 8.7 %; Mean Corpuscular HGB Conc 33.9 g/dL (30-55); Mean Corpuscular Hemoglobin 39.8 pg (27-33); Mean Corpuscular Volume 117.4 fl (82-101); Mean Platelet Volume 9.2 fL (7.4-10.4); Monocytes # 0.4 10^3/uL (0.2-0.9); Monocytes % 3.8 %; Neutrophils # 9.94 10^3/uL (1.8-7.7); Neutrophils % 86.5 %; Nucleated Red Blood Cells % 0.2 %; Platelet Count 113 10^3/cmm (157-399); Red Blood Count 2.41 10^6/uL (3.85-5.65); Red Cell Distribution Width 13.6 % (12.1-15.1); White Blood Count 11.49 10^3/uL (3.29-11.43)
[2023-07-23] MEDS: norepinephrine 4 MG/250 ML BAG 67.5 MG IV (21:27)
[2023-07-23 21:39] LABS: Alanine Aminotransferase 155 U/L (0-41); Alkaline Phosphatase 84 U/L (40-130); Blood Urea Nitrogen 19 mg/dL (8-23); Calcium 6.8 mg/dL (8.5-10.5); Carbon Dioxide 12 mmol/L (22-29); Chloride 106 mmol/L (98-107); Globulin 1.2 g/dL (1.3-4.6); Glucose 177 mg/dL (65-115); Osmolality Calculated 299 mOsm/kg (285-295); Sodium 141 mmol/L (136-145); Total Bilirubin 0.8 mg/dL (0.15-1.2); Total Protein 4.2 g/dL (6.6-8.7)
[2023-07-23 21:45] LABS: Anion Gap 27.2 (5-19); Aspartate Amino Transferase 541 U/L (0-40); Potassium 4.2 mmol/L (3.5-5.1)
--- NOTE | 2023-07-23 21:45 | ECG_ITS ---
[facility] Test Date: 2023-07-23 Pat Name: Johnathon Garcia Department: Room: ICU11 Gender: Male Entry Level Assistant Manager: : 1950 Requested By: Liss Michael Order Number: [id number] Ledezma MD: Wang Burciaga M.D. Measurements Intervals [place] Rate: 103 P: 0 AL: 0 QRS: -76 QRSD: 159 T: 254 QT: 398 QTc: 522 Interpretive Statements ATRIAL FIBRILLATION WITH RAPID VENTRICULAR RESPONSE WITH ABERRANT CONDUCTION OR VENTRICULAR PREMATURE COMPLEXES INTRAVENTRICULAR CONDUCTION DELAY [130+ ms QRS DURATION] POSSIBLE INFERIOR MYOCARDIAL INFARCTION , OF INDETERMINATE AGE [30 ms Q WAVE IN II/aVF] Compared to ECG 07/23/2023 16:39:36 Ventricular premature complex(es) now present Aberrant conduction of supraventricular beat(s) now present Intraventricular conduction delay now present Right bundle-branch block no longer present Myocardial infarct finding still present Electronically Signed On 07-24-2023 21:37:48 CDT by Wang Burciaga M.D. [email or web address]
--- NOTE | 2023-07-23 21:45 | PC.NURSE ---
Physician Communication At 190, Dr. Bryant called unit; order received for heparin drip started per protocol. Dr. Moore contacted unit and additional order received to not administer any heparin loading bolus. Further orders clarified regarding un-administered medications: linezolid to not be administered, fluid bolus to not be administered, re-time solu-cortef, protonix, insulin, meropenem, At 2000, the following critical labs received: INR 8.31, ptt 189.1, lactate 11.9, troponin 5534, [address] Bryant contacted at 2007, order received to discontinue heparin drip, obtain stat cbc/cmp/ABG, give a 1 L NS bolus IV once, and perform a cheetah assessment. Cheetah assessment performed revealing an SVI of 22.1%. Dr. Bryant notified of results; order received to administer 2 L of NS boluses. Dr. Bryant also notified of ABG results. Order received for sodium bicarb drip to increase to 150 ml/hr. Dr. Bryant notified of neurological status-- eyes fixated, nonreactive, lack of gag reflex, and no pain response-- and weaning of sedation medications; order received to leave sedation on overnight for ventilator compliance. Fentanyl and versed titrated per protocol.
[2023-07-23 22:11] LABS: Amorphous Sediment Urine 1+ /hpf; Bacteria Urine 2+ /hpf; Bilirubin Urine Neg (Negative); Blood Urine 3+ (Negative); Glucose Urine UA 1+ (Normal); Ketones Urine Negative (Negative); Leukocyte Esterase Urine Negative (Negative); Mucus Urine 1+ /hpf; Nitrate Urine Negative (Negative); Protein Urine 3+ (Negative); RBC Urine 15-25 /hpf (0-2); Squamous Epithelial Cell Urine 0-4 /hpf (0-5); Urine Appearance Cloudy (CLEAR); Urine Color Red (Yellow); Urobilinogen Urine Neg (Negative); pH Urine 6 (5-7)
[2023-07-23 22:12] LABS: Coarse Granular Casts Urine 0-4 /lpf; Hyaline Casts Urine 0-4 /lpf; Sperm Urine 2+ /hpf
[2023-07-23 22:13] LABS: Add Urine Culture? Yes
--- NOTE | 2023-07-23 22:21 | P.PNCC_ITS ---
Critical Care Event Note Got a call from legal secretary receptionist radiologist regarding possibility of a small PE without right heart strain. Care discussed in detail with patient's primary physician. Decision was made to start heparin drip without bolus. Repeat INR shows worsening along with thrombocytopenia hence it was decided against starting the heparin drip. Patient found to have an end-tidal CO2 of 12-14. Currently patient is off sedation. Previously was on fentanyl 75 and Versed of 3. Patient remains oliguric. Requested Cheetah examination, ABG, stat CBC and CMP. Cheetah exam showed fluid responsiveness. ABG appreciated with slight improvement in pH up to 7.15. Concerns for patient overbreathing the vent. Abnormal lab results 07/23/23 07/23/23 07/23/23 Range/Units 14:42 15:13 16:28 WBC (3.29-11.43) 10^3/uL RBC 2.99 L (3.85-5.65) 10^6/uL Hgb (11.27-16.99) g/dL Hct 34.7 L (37-53) % MCV 116.1 H (82-101) fl MCH 39.8 H (27-33) pg Plt Count 48 L (157-399) 10^3/cmm MPV 10.7 H (7.4-10.4) fL Neut # (Auto) (1.8-7.7) 10^3/uL [place] # (Auto) 0.1 L (0.2-0.9) 10^3/uL PT 38.10 H (12.1-14.9) SECONDS INR 3.70 H (0.8-1.2) APTT 153.8 H* (23.9-36.7) SECONDS Fibrinogen (174-498) mg/dL D-Dimer (0-0.59) ug/mLFEU ABG pH 7.10 L* (7.35-7.45) ABG pCO2 (35-45) mmHg ABG pO2 483.0 H (80.0-100.0) mmHg ABG HCO3 11.4 L (22-26) mmol/L ABG Base Excess -17.3 L (-2.0-2.0) mmol/L A-a O2 Gradient 22.4 H (5-10) mmHg Hematocrit 32.7 L (42-52) % Methemoglobin (0.4-1.5) % Total Hemoglobin 10.7 L (14-18) g/dL Ionized Calcium 1.0 L (1.1-1.4) mmol/L Carbon Dioxide 16 L (22-29) mmol/L Anion Gap 25.3 H (5-19) Creatinine 1.3 H (0.7-1.2) mg/dL Glucose 276 H 220.0 H (65-115) mg/dL POC Glucose (70-110) mg/dL Calculated Osmolality 308 H (285-295) mOsm/kg Lactic Acid 11.2 H* (0.5-2.2) mmol/L Lactic Acid (Sepsis) (0.5-2.2) mmol/L Lactate (0.5-2.2) mmol/L Calcium 7.9 L (8.5-10.5) mg/dL AST 410 H (0-40) U/L ALT 217 H (0-41) U/L Troponin T Baseline 281 H* (0-15) ng/L Troponin T 120 Minute 1377 H (0-15) ng/L Delta Troponin T 1096 H* (0-10) ABS# Troponin T Hi Sens 6Hr (0-15) ng/L Troponin T Hi Sens 6Hr Delta (0-12) ng/L NT-Pro-B Natriuret Pep 68263 H (0-125) pg/mL Total Protein 4.5 L (6.6-8.7) g/dL Albumin 3.0 L (3.5-5.2) g/dL Globulin (1.3-4.6) g/dL LDL Cholesterol, Calc 20 L (50-129) mg/dL HDL Cholesterol 52 L (60-100) mg/dL Urine Color (Yellow) Urine Appearance (CLEAR) Urine Protein (Negative) Urine Glucose (UA) (Normal) Urine Blood (Negative) Urine RBC (0-2) /hpf Urine WBC (0-5) /hpf Ur Squamous Epith Cells (0-5) /hpf Urine Bacteria (NONE) /hpf Hyaline Casts /lpf Fine Granular Casts /lpf Coarse Granular Casts /lpf 07/23/23 07/23/23 07/23/23 Range/Units 17:10 18:51 19:24 WBC (3.29-11.43) 10^3/uL RBC (3.85-5.65) 10^6/uL Hgb (11.27-16.99) g/dL Hct (37-53) % MCV (82-101) fl MCH (27-33) pg Plt Count (157-399) 10^3/cmm MPV (7.4-10.4) fL Neut # (Auto) (1.8-7.7) 10^3/uL Concordia # (Auto) (0.2-0.9) 10^3/uL PT 72.50 H (12.1-14.9) SECONDS INR 8.31 H* (0.8-1.2) APTT 189.1 H* (23.9-36.7) SECONDS Fibrinogen < 60 L (174-498) mg/dL D-Dimer >= 20.00 H (0-0.59) ug/mLFEU ABG pH (7.35-7.45) ABG pCO2 (35-45) mmHg ABG pO2 (80.0-100.0) mmHg ABG HCO3 (22-26) mmol/L ABG Base Excess (-2.0-2.0) mmol/L A-a O2 Gradient (5-10) mmHg Hematocrit (42-52) % Methemoglobin (0.4-1.5) % Total Hemoglobin (14-18) g/dL Ionized Calcium (1.1-1.4) mmol/L Carbon Dioxide (22-29) mmol/L Anion Gap (5-19) Creatinine (0.7-1.2) mg/dL Glucose (65-115) mg/dL POC Glucose (70-110) mg/dL Calculated Osmolality (285-295) mOsm/kg Lactic Acid (0.5-2.2) mmol/L Lactic Acid (Sepsis) 10.2 H* (0.5-2.2) mmol/L Lactate 11.9 H* (0.5-2.2) mmol/L Calcium (8.5-10.5) mg/dL AST (0-40) U/L ALT (0-41) U/L Troponin T Baseline (0-15) ng/L Troponin T 120 Minute (0-15) ng/L Delta Troponin T (0-10) ABS# Troponin T Hi Sens 6Hr 5534 H (0-15) ng/L Troponin T Hi Sens 6Hr Delta 5253 H* (0-12) ng/L NT-Pro-B Natriuret Pep (0-125) pg/mL Total Protein (6.6-8.7) g/dL Albumin (3.5-5.2) g/dL Globulin (1.3-4.6) g/dL LDL Cholesterol, Calc (50-129) mg/dL HDL Cholesterol (60-100) mg/dL Urine Color (Yellow) Urine Appearance (CLEAR) Urine Protein (Negative) Urine Glucose (UA) (Normal) Urine Blood (Negative) Urine RBC (0-2) /hpf Urine WBC (0-5) /hpf Ur Squamous Epith Cells (0-5) /hpf Urine Bacteria (NONE) /hpf Hyaline Casts /lpf Fine Granular Casts /lpf Coarse Granular Casts /lpf 07/23/23 07/23/23 07/23/23 Range/Units 19:29 19:43 20:05 WBC (3.29-11.43) 10^3/uL RBC (3.85-5.65) 10^6/uL Hgb (11.27-16.99) g/dL Hct 34.3 L (37-53) % MCV (82-101) fl MCH (27-33) pg Plt Count 91 L D (157-399) 10^3/cmm MPV (7.4-10.4) fL Neut # (Auto) (1.8-7.7) 10^3/uL [place] # (Auto) (0.2-0.9) 10^3/uL PT (12.1-14.9) SECONDS INR (0.8-1.2) APTT (23.9-36.7) SECONDS Fibrinogen (174-498) mg/dL D-Dimer (0-0.59) ug/mLFEU ABG pH 7.15 L* (7.35-7.45) ABG pCO2 26.2 L (35-45) mmHg ABG pO2 167.0 H (80.0-100.0) mmHg ABG HCO3 9.1 L (22-26) mmol/L ABG Base Excess -18.2 L (-2.0-2.0) mmol/L A-a O2 Gradient 10.6 H (5-10) mmHg Hematocrit 37.4 L (42-52) % Methemoglobin 0.1 L (0.4-1.5) % Total Hemoglobin 12.2 L (14-18) g/dL Ionized Calcium 1.0 L (1.1-1.4) mmol/L Carbon Dioxide (22-29) mmol/L Anion Gap (5-19) Creatinine (0.7-1.2) mg/dL Glucose 184.0 H (65-115) mg/dL POC Glucose 178 H (70-110) mg/dL Calculated Osmolality (285-295) mOsm/kg Lactic Acid (0.5-2.2) mmol/L Lactic Acid (Sepsis) (0.5-2.2) mmol/L Lactate (0.5-2.2) mmol/L Calcium (8.5-10.5) mg/dL AST (0-40) U/L ALT (0-41) U/L Troponin T Baseline (0-15) ng/L Troponin T 120 Minute (0-15) ng/L Delta Troponin T (0-10) ABS# Troponin T Hi Sens 6Hr (0-15) ng/L Troponin T Hi Sens 6Hr Delta (0-12) ng/L NT-Pro-B Natriuret Pep (0-125) pg/mL Total Protein (6.6-8.7) g/dL Albumin (3.5-5.2) g/dL Globulin (1.3-4.6) g/dL LDL Cholesterol, Calc (50-129) mg/dL HDL Cholesterol (60-100) mg/dL Urine Color (Yellow) Urine Appearance (CLEAR) Urine Protein (Negative) Urine Glucose (UA) (Normal) Urine Blood (Negative) Urine RBC (0-2) /hpf Urine WBC (0-5) /hpf Ur Squamous Epith Cells (0-5) /hpf Urine Bacteria (NONE) /hpf Hyaline Casts /lpf Fine Granular Casts /lpf Coarse Granular Casts /lpf 07/23/23 07/23/23 Range/Units 21:00 21:48 WBC 11.49 H (3.29-11.43) 10^3/uL RBC 2.41 L (3.85-5.65) 10^6/uL Hgb 9.60 L (11.27-16.99) g/dL Hct 28.3 L (37-53) % MCV 117.4 H (82-101) fl MCH 39.8 H (27-33) pg Plt Count 113 L (157-399) 10^3/cmm MPV (7.4-10.4) fL Neut # (Auto) 9.94 H (1.8-7.7) 10^3/uL [place] # (Auto) (0.2-0.9) 10^3/uL PT (12.1-14.9) SECONDS INR (0.8-1.2) APTT (23.9-36.7) SECONDS Fibrinogen (174-498) mg/dL D-Dimer (0-0.59) ug/mLFEU ABG pH (7.35-7.45) ABG pCO2 (35-45) mmHg ABG pO2 (80.0-100.0) mmHg ABG HCO3 (22-26) mmol/L ABG Base Excess (-2.0-2.0) mmol/L A-a O2 Gradient (5-10) mmHg Hematocrit (42-52) % Methemoglobin (0.4-1.5) % Total Hemoglobin (14-18) g/dL Ionized Calcium (1.1-1.4) mmol/L Carbon Dioxide 12 L (22-29) mmol/L Anion Gap 27.2 H (5-19) Creatinine 1.6 H (0.7-1.2) mg/dL Glucose 177 H (65-115) mg/dL POC Glucose (70-110) mg/dL Calculated Osmolality 299 H (285-295) mOsm/kg Lactic Acid (0.5-2.2) mmol/L Lactic Acid (Sepsis) (0.5-2.2) mmol/L Lactate (0.5-2.2) mmol/L Calcium 6.8 L (8.5-10.5) mg/dL AST 541 H (0-40) U/L ALT 155 H (0-41) U/L Troponin T Baseline (0-15) ng/L Troponin T 120 Minute (0-15) ng/L Delta Troponin T (0-10) ABS# Troponin T Hi Sens 6Hr (0-15) ng/L Troponin T Hi Sens 6Hr Delta (0-12) ng/L NT-Pro-B Natriuret Pep (0-125) pg/mL Total Protein 4.2 L (6.6-8.7) g/dL Albumin 3.0 L (3.5-5.2) g/dL Globulin 1.2 L (1.3-4.6) g/dL LDL Cholesterol, Calc (50-129) mg/dL HDL Cholesterol (60-100) mg/dL Urine Color Red A (Yellow) Urine Appearance Cloudy A (CLEAR) Urine Protein 3+ H (Negative) Urine Glucose (UA) 1+ H (Normal) Urine Blood 3+ H (Negative) Urine RBC 15-25 H (0-2) /hpf Urine WBC 5-10 H (0-5) /hpf Ur Squamous Epith Cells 0-4 H (0-5) /hpf Urine Bacteria 2+ H (NONE) /hpf Hyaline Casts 0-4 H /lpf Fine Granular Casts 5-10 H /lpf Coarse Granular Casts 0-4 H /lpf Plan: 2 L IV fluid bolus with normal saline followed by sodium bicarb to be increased at 150 cc/h. Restart sedation and add Precedex. Severely guarded prognosis. The high probability of a clinically significant, sudden or life threatening deterioration of the patient's [cardiac, hemodynamic, respiratory, vent setting] system(s) required my full and direct attention, intervention and personal management. The critical care time is as shown. This time is in addition to time spent performing any reported procedures but includes the following: [x] Data and vital sign review and interpretation [x] Patient assessment, examination and intervention [x] Documentation [x] Medication orders and management 60 Critical Care Time Code activated: No Critical Care Time (min): 60 Coding Level of Care Code Critical Care
--- NOTE | 2023-07-23 22:47 | XRR_ITS ---
PROCEDURE INFORMATION: Exam: XR Chest Exam date and time: 07/23/2023 10:55 PM Age: 72 years old Clinical indication: Device placement; Ng tube; Patient HX: Check S/P og placement; Additional info: Ng tube placement TECHNIQUE: Imaging protocol: Radiologic exam of the chest. Views: 1 view. COMPARISON: CR (CHEST, ) 07/23/2023 6:30 PM FINDINGS: Tubes, catheters and devices: Intubation with tip approximately 10.0 cm above the raphael. Stable right PICC line with tip in the mid SVC. Gastric tube placement with tip in the proximal stomach. Two radiopaque densities adjacent to the gastric tube could represent foreign bodies in the mid esophagus. Lungs: Stable left upper lobe infiltrate. Calcified granuloma in the right lung. Pleural spaces: Unremarkable. No pleural effusion. No pneumothorax. Heart/Mediastinum: Unremarkable. No cardiomegaly. Bones/joints: Unremarkable. XR/XR chest 1V portable [id number] IMPRESSION: 1. Gastric tube tip in the proximal stomach. 2. Stable left upper lobe pneumonia.
[2023-07-24] VITALS (14 sets, daily range): BP systolic 68–101; BP diastolic 52–69; PULSE 0–103; RESP 8; TEMP 33.8; O2SAT 78–100
--- NOTE | 2023-07-24 00:25 | W.PM.EVENTAC ---
Event Note Event Note: patient's has elected to proceed with comfort care measures.
[2023-07-24] MEDS: morphine 4 mg/mL SDV 1 mL IVP (00:47)
[2023-07-24] MEDS: glycopyrrolate 0.2 mg/mL SDV 2 mL 0.200000000000000011 MG IV (00:48)
--- NOTE | 2023-07-24 01:05 | PC.NURSE ---
Physician Communication Patient noted to have liquid bloody bowel movement as well as a rectal temperature of 93.4 F. PO aspirin ordered with no OG/NG in place for administration. Dr. Lopez notified; orders received to discontinue aspirin and insert NG tube. NG tube insertion attempted with no success. At 2359, patient's picc line insertion site bleeding profusely. Surgicell with gauze applied to site with new dressing, coban applied for pressure. Furthermore, patient's temperature decreasing to 92.8F rectally and patient's hgb 7.1 with a hematocrit of 21%. Dr. Lopez contacted; order received to apply betty hugger, and to transfuse 1 unit of PRBC. Upon educating patient's of patient status update as well as new orders, stated that she would like to start comfort care measures. Dr. Lopez notified. Comfort care measures initiated. Time of 57. No heart, lung sounds verified with PARESH Bartlett. Dr. Lopez and lead warehouse associate notified.
--- NOTE | 2023-07-24 01:20 | PC.NURSE ---
[facility] MTS contacted at 0025 prior to initiating comfort care measures. Referral number [id number]. Verification received to proceed with comfort care measures. At 0104, MTS notified of patient , billing customer service representative Tori. MTS to contact again for donation eligibility status.
--- NOTE | 2023-07-24 02:00 | PC.NURSE ---
Addendum entered by Tri Deal RN 07/24/23 02:01: witnessed waste of fentanyl and versed Original Note: Waste Remaining Fentanyl and versed wasted with PARESH Bartlett.
--- NOTE | 2023-07-24 03:45 | PC.NURSE ---
[facility] Patient left unit for carrington at 0344. All belongings sent home with .
--- NOTE | 2023-07-24 06:21 | PC.NURSE ---
Cleared for release by [facility] coordinator Eliane at 0351, patient already in [facility] morgue. [facility] contacted at this time.
[2023-07-29 09:40] LABS: Fibrinogen Degradation Product 160 mcg/mL (LESS THAN 5)
--- NOTE | 2023-08-01 10:49 | P.DES_ITS ---
Discharge Providers DDS Date of Admission: 07/23/23 17:01 Date Summary Completed: 08/01/23 Attending Provider at Admission: Zay Moore MD Time of : 01:04 Attending Provider at Discharge: Zay Moore MD DS Diagnoses Hospital Diagnoses (1) Cardiogenic shock: (2) Elevated troponin: (3) Cardiac arrest: (4) Metabolic acidosis: (5) Lactic acidosis: (6) Acute hypoxic respiratory failure: (7) Shock liver: (8) NSTEMI (non-ST elevated myocardial infarction): (9) Multiorgan failure: (10) Thrombocytopenia: (11) Elevated INR: (12) Anoxic brain injury: Reason for Visit Reason for Visit unresponsive Summary Date and Time of Date of : 07/24/23 Time of : 01:04 Summary Summary: Johnathon Garcia is a 72 year old male with past medical history of diabetes, he has not seen a physician in many years, who presents to [facility] due to cardiac arrest. Currently patient is intubated, sedated, on 18 of Levophed, 40% FiO2, does not follow commands, patient's is at bedside. According to patient's for the last few months patient's condition has been deteriorating, has been more weak fatigue he has been losing weight, more bedbound, less mobile, she tells me that he is an alcoholic, his last drink of alcohol was last night before he went to bed, he does frequently stumble, she tells me that he has been having poor appetite, weight loss, fatigue, malaise, complaining of chest pain intermittently complaining of shortness of breath, but has not seen a physician for these complaints. Apparently this morning, him and his went out for a picnic, they did not go so far, and they came back around noon. Patient's stepped out for about 15 to 20 minutes, Johnathon went to take a nap, when she came back she found Johnathon, unresponsive, agonal breathing, she could not feel a pulse so she called her son who told her to call an ambulance, when EMS arrived about 5 to 10 minutes after the call, CPR was performed at the residence for a total of about an hour, ROSC was achieved 3 times, rhythm was asystole, rhythm after ROSC was unclear during my examination, pupils are slowly reactive to light, he is biting on the ET tube, does not follow commands, mottled up to the level of the abdomen, on Levo phed at 18, 40% FiO2, equal breath sounds bilaterally, rhythm on the monitor looks sinus rhythm, his lactic acid is 10.2, initial troponin was 281, now troponin 1377 with a delta of 1096,st depression in anterior leads, is at bedside I had a detailed discussion with patient about his goals of care, patient's does not want patient to be resuscitated if he were to go into cardiac arrest, if his condition starts to further deteriorate, and the likelihood of him having a meaningful recovery is unlikely she will at all interventions to be stopped, above all she does not want him to suffer, if he starts to suffer if his condition starts to deteriorate, she wants us to emphasize his comfort, and she is agreeable to proceed with comfort care, rest to ease his pain and ease his suffering, for now she wants medical interventions to continue, but again if his condition deteriorates or if the likelihood of him having a meaningful recovery is unlikely she wants medical interventions to be stopped and for us to proceed with comfort care I did discussion with patient's that his overall prognosis is poor, given his prolonged CPR, his prolonged downtime, and based upon his blood work, and his his clinical findings, I am worried about poor neurologic recovery given his downtime, his prolonged CPR, evidence of endorgan failure, currently his status is critical, prognosis is poor Patient was admitted to [facility] for cardiac arrest, NSTEMI, acute hypoxic respiratory failure, multifactorial shock, multiorgan failure, acute renal failure, acute liver failure, metabolic acidosis, lactic acidosis also found to have pulmonary embolism without right heart strain, after detailed discussion with patient's family, goals of care, patient is DNR/DNI monitor in the ICU intubated, sedated, receiving broad-spectrum antibiotic therapy, risk for requiring pressor therapy, placed on anticoagulant therapy, patient was admitted to ICU, critically ill, prognosis poor. Concern for cause of cardiac arrest and NSTEMI, concerning for underlying cardiac event, certainly patient is acute pulmonary embolism could have played a role. In addition there was evidence of DIC. There was concerns for anoxic brain injury, given the length of patient's resuscitation. After detailed discussion with the patient's family, patient's family elected to proceed with comfort care, patient was made comfort care, terminally extubated, time of 1:04 AM 07/24/2023 Additional Data Confirmation of as documented by pronouncing clinician: no pulse, no respirations and no heart sounds Family: at bedside Additional persons at bedside: nursing staff Attending/PCP notified?: I am attending Was code activated?: No Autopsy requested?: No Advance directives?: No Hospice patient?: No Discharge Plan Discharge Patient Disposition: Condition: Stable Probable Cause of Probable cause of : Cardiac arrest DS Attestations Time Spent in /Discharge Care*: greater than 30 min Quality - AMI: AMI present?: No Quality - Stroke: CVA present?: No Quality - VTE: VTE present?: Yes Coding Level of Care Code 46724 Total time (in minutes) for Discharge: 45 Diagnoses Cardiogenic shock R57.0 Elevated troponin R79.89 Cardiac arrest I46.9 Metabolic acidosis E87.20 Lactic acidosis E87.20 Acute hypoxic respiratory failure J96.01 Shock liver K72.00 NSTEMI (non-ST elevated myocardial infarction) I21.4 Multiorgan failure Thrombocytopenia D69.6 Elevated INR R79.1 Anoxic brain injury G93.1
== END 2023-07-24 03:44 | disposition expired ==
LOC: ER 16:56 → ICU 17:02
PROVIDERS: Student in an Organized Health Care Education/Training Program; Admitting Provider Family Medicine; Emergency Provider Emergency Medicine; Visit Provider Family Medicine
DX: I21.4 Non-ST elevation (NSTEMI) myocardial infarction (principal); D65 Disseminated intravascular coagulation [defibrination syndrome]; I26.99 Other pulmonary embolism without acute cor pulmonale; J96.01 Acute respiratory failure with hypoxia; K72.00 Acute and subacute hepatic failure without coma; E87.20 Acidosis, unspecified; G93.1 Anoxic brain damage, not elsewhere classified; N17.9 Acute kidney failure, unspecified; D68.9 Coagulation defect, unspecified; I46.2 Cardiac arrest due to underlying cardiac condition; R57.0 Cardiogenic shock; E11.9 Type 2 diabetes mellitus without complications; Z51.5 Encounter for palliative care; Z66 Do not resuscitate
CPT/HCPCS: 36415; 36416; 36573; 36600; 51702; 70450; 71045; 71275; 74177; 80051; 80053; 80061; 81001; 82009; 82330; 82805; 82962; 83036; 83605; 83880; 84145; 84484; 85014; 85018; 85025; 85049; 85362; 85378; 85384; 85610; 85730; 87040; 87070; 87086; 87205; 93005; 94002; 94664; 94799; 96365; 96366; 96367; 96368; 96372; 96376; 99291; 99292; C1751; C9113; J1720; J1815; J2185; J2250; J2270; J2543; J3010; J3370; J3490; J7030; J7050; P9046; Q9967